=== PATIENT | male | born 1955 | race Caucasian/White ===

== ENCOUNTER → 2021-11-07 | Outpatient (CLI) | payer MEDICARE ==
[~2021-11-07] MED LIST: IOHEXOL 300 MG/ML 50 ML VIAL. IT ONE; LIDOCAINE 1% Multi-Dose 20 ML VIAL. ID ONE
--- NOTE | 2021-11-07 12:50 | RAD ---
PROCEDURE: FLUOROSCOPICALLY GUIDED MYELOGRAM CLINICAL HISTORY: The patient is a 66 years old Male who presented with cervical spondylosis and uppe r extremity weakness. CONSENT: The risks, benefits, treatment options, potential complications and personnel to be involved were discussed (including the risks of radiation exposure, instruments to be used, contrast and anes thesia administration) with the patient. All questions were answered and consent was obtained. The pa tient indicated willingness to proceed. GENERAL: - Medication Reconciliation: The patient's medications and allergies were reviewed and reconciled to the proposed procedure/treatment. - Pre-procedure Sign-in: Safety Checklist Performed Yes - Positioning: The patient was placed Prone on the fluoroscopy table. - The lower back was then sterilely prepped and draped. - Time Out: A time out was performed immediately prior to procedure start with the nursing, anesthesi a and interventional team, correctly identifying the patient name, date of , procedure, anatomy (including marking of site and side), patient position, procedure consent form, relevant diagnostic a nd radiology test results, antibiotic administration, safety precautions, and procedure-specific equi pment needs. - Anesthesia Type: Local anesthesia: 1% Lidocaine PROCEDURE: - Access Site: 22 gauge spinal needle from a right oblique approach at the level of L4-L5 initially a nd later at the level of L2-L3. - Procedure Details: -- Myelogram: Under fluoroscopic guidance, attempts were made to advance the needle into the lumbar s ubarachnoid space without success. After several unsuccessful attempts at 2 different spinal levels, the procedure was aborted at the patient's request due to the level of patient discomfort incurred fr om lying on the fluoroscopy table. - Estimated Blood Loss: 0 mL - Fluoroscopic Radiation Summary: -- Fluoroscopy Time: 2.4 minutes -- Number of Images: 12 POST-PROCEDURE: - Hemostasis: Hemostasis was achieved using light manual compression. - Sign-out: Communication Performed Yes - Conclusion: The patient was discharged from the radiology department in stable condition. Immediate Complications: None. IMPRESSION: Unsuccessful fluoroscopically guided myelogram. Electronically signed by: Estrada Carlson DO (11/07/2021 12:48 PM) [id number]
== END | disposition home or self-care (01) ==
LOC: RAD 09:54
PROVIDERS: ATTEND Neurological Surgery
DX: M47.812 Spondylosis without myelopathy or radiculopathy, cervical region (principal); R53.1 Weakness; Z88.0 Allergy status to penicillin
CPT/HCPCS: 62302